=== PATIENT | male | born 1945 | race Caucasian/White ===

== ENCOUNTER 2024-08-19 09:48 | Outpatient (AMB) | payer MEDICARE, SELFPAY ==
--- NOTE | 2024-08-19 09:57 | MHC.OFFVIS ---
Vital Signs 08/19/24 10:08 Height 5 ft 3 in Weight 143 lb 15.39 oz BMI 25.5 BP 126/72 Blood Pressure Location Lt brachial Position Sitting Pulse 66 Pulse Source Pulse Oximeter Pulse Oximetry (%) 98 Oxygen Delivery Method Room Air Intake Visit Reasons: Arthritis/LM TO CB need records Intake Note: Patient presents today for arthritis in both hands. Allergies environmental allergies Allergy (Mild, Verified 08/19/24 10:14) Watery Eye, sneezing, runny nose HPI Comments Details: She is currently experiencing weakness and discomfort in her hands. History of Dupuytren's contractures-longstanding. In the past she has gone to occupational therapy and has had braces fitted. She also has exercises and paperwork from occupational therapy that she has at home. She does not do exercises regularly. She is currently going to physical therapy for neck strengthening and will also be starting physical therapy for shoulder pain and improving range of motion. She continues to do exercises regularly for lower extremity strengthening. She also walks regularly. Records have not been received from the [facility]. 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 Pancreatitis, acute Cirrhosis of liver Degenerative lumbar disc Hepatic fibrosis Acid reflux disease Varicose vein of leg Osteoporosis Persistent insomnia Family History (Updated 08/19/24 @ 10:33 by Ny Simmons CMA) Father Stroke Sister Cancer Shingles Review of Systems Const All systems reviewed & are unremarkable except as noted in HPI and below Physical Exam Vital Signs: Last Vital Signs Pulse 66 08/19/24 10:08 BP 126/72 08/19/24 10:08 Pulse Ox 98 08/19/24 10:08 Oxygen Delivery Method Room Air 08/19/24 10:08 BMI result Body Mass Index 25.5 Extrem Other: Bilateral Dupuytren's contractures present. No tenderness of joints Scoring of CMCs No Heberden's or Lo's nodes noted Weak leasing manager Assessment & Plan Assessment & Plan (1) Osteoarthritis, hand, primary localized: Comment: Clinical. She has been to occupational therapist in the past. We discussed the natural course of osteoarthritis and management. Code(s): M19.049 - Primary osteoarthritis, unspecified hand Category: Medical Plan: She will start doing exercises learned from occupational therapy in the past daily to improve range of motion and strength She will retry Voltaren gel that she has at home apply to affected area every 4-6 hours as needed Can consider trying curcumin capsule maximum dose of 1000 mg daily to help with hand pain Return to clinic in 6 months or sooner if needed (2) Dupuytren contracture of both hands: Comment: Stable Code(s): M72.0 - Palmar fascial fibromatosis [Dupuytren] Category: Medical Plan: Will monitor clinically We discussed starting exercises learned from occupational therapy in the past daily to improve range of motion and strength Plan Requesting records from [facility] Coding Level of Care Code Est Pt Level 3 (83399) Diagnoses Osteoarthritis, hand, primary localized M19.049 Dupuytren contracture of both hands M72.0
[2024-08-19 10:08] VITALS: BP 126/72; PULSE 66; O2SAT 98; BMI 25.5
== END 2024-08-19 11:05 | disposition home or self-care (01) ==
PROVIDERS: PCP Physician Assistant Medical; Visit Provider Internal Medicine Rheumatology
DX: M19.049 Primary osteoarthritis, unspecified hand (principal); M72.0 Palmar fascial fibromatosis [Dupuytren]
CPT/HCPCS: 99213

== ENCOUNTER → 2024-08-19 09:48 | Outpatient (BNVA) | payer MEDICARE, SELFPAY | PROVIDERS: PCP Physician Assistant Medical; Visit Provider Internal Medicine Rheumatology | DX: M19.049 Primary osteoarthritis, unspecified hand (principal); M72.0 Palmar fascial fibromatosis [Dupuytren] | CPT/HCPCS: 99212 ==

== ENCOUNTER 2025-02-18 10:17 | Outpatient (AMB) | payer MEDICARE, SELFPAY ==
[2025-02-18 10:20] VITALS: BP 122/76; PULSE 71; O2SAT 97; BMI 26.3
--- NOTE | 2025-02-18 10:20 | A.OFFVIS_ITS ---
Vital Signs 02/18/25 10:20 Height 5 ft 3 in Weight 148 lb 9.465 oz BMI 26.3 BP 122/76 Blood Pressure Location Lt brachial Position Sitting Pulse 71 Pulse Source Pulse Oximeter Pulse Oximetry (%) 97 Oxygen Delivery Method Room Air Intake Visit Reasons: Follow Up 6mo Intake Note: Patient presents today for arthritis in both hands. She also states feet and back pain, and lab review. Accompanied by: Life Partner Allergies environmental allergies Allergy (Mild, Verified 08/19/24 10:14) Watery Eye, sneezing, runny nose HPI HPI Follow Up 6mo: Details: She is participating in PT. OT will be scheduled at [facility] Pain is migratory. She may have pain in her hands then another time it will be in her back. She has constant foot pain. She also has paraesthesia in her foot. She was diagnosed with neuropathy in her foot. Denies diabetes. Bracing helps hand pain. She continues to have pain in her thumbs. In the past she had 1 year benefit with cortisone injection. Second cortisone injection caused steroid flare. She had swelling in hand for 3 days. She was unable to move her hand and it remained in the same clenched position. Icing and heating helped. Voltaren gel BID helps. 0. 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 Tenderness of bilateral CMCs with squaring. Normal range of motion of hands. No Heberden's or Lo's nodes noted Weak media planner / buyer Tender to palpate bilateral MTPs. She has bilateral hallux valgus deformity. No synovitis present. Office Procedures AMB Joint Injection/Aspiration Joint Injection/Aspiration Details: Bilateral CMCs Prep: site was prepped using aseptic technique Injected into each site: 10 mg of, Kenalog, with 0.25 mL of and 1% plain lidocaine Procedure: Verbal informed consent obtained. The patient tolerated the procedure well. Postprocedure protocol was discussed with patient. Coding - Small Joint Procedure code (CPT) selection complete AMB Joint Injection/Aspiration Coding - Small Joint Procedure code (CPT) selection complete Office Meds lidocaine (PF) 10 mg/mL (1 %) injection solution Performing Provider: Pratik Dove MD Performing Location: [facility] Administered by: Pratik Dove MD on 02/18/25 12:38 Dose Route Admin Location Dispensed Lot Number Expiration Date [facility] [employer] 2.5 mg Infiltration 2 mL [id number] [employer] Kenalog 40 mg/mL suspension for injection Performing Provider: Pratik Dove MD Performing Location: [facility] [place] [facility] Administered by: Pratik Dove MD on 02/18/25 12:38 Dose Route Admin Location Dispensed Lot Number Expiration Date [facility] [employer] 10 mg intra-articular 1 mL [place] [id number] [place] [employer] lidocaine (PF) 10 mg/mL (1 %) injection solution Performing Provider: Pratik Dove MD Performing Location: [facility] [place] [facility] Administered by: Pratik Dove MD on 02/18/25 12:38 Dose Route Admin Location Dispensed Lot Number Expiration Date [facility] [employer] 2.5 mg Infiltration 2 mL [id number] [employer] Kenalog 40 mg/mL suspension for injection Performing Provider: Pratik Dove MD Performing Location: [facility] [place] [facility] Administered by: Pratik Dove MD on 02/18/25 12:38 Dose Route Admin Location Dispensed Lot Number Expiration Date [facility] [employer] 10 mg intra-articular 1 mL [id number] [employer] Assessment & Plan Assessment & Plan (1) Bilateral foot pain: Comment: Chronic. She has localized tenderness to her MTPs and bunion. I will obtain x- rays for further evaluation. Pain from uncontrolled peripheral neuropathy is contributing. We discussed conservative management. Code(s): M79.671 - Pain in right foot; M79.672 - Pain in left foot Category: Medical Plan: Bilateral foot x-rays ordered for further evaluation of patient's foot pain She will benefit from PT for foot strengthening Continue to wear supportive footwear I recommend PCP follow-up for management of peripheral neuropathy. Consider gabapentin or Lyrica to help control symptoms of peripheral neuropathy She will try warm salt bath/warm foot soaks. She did not like paraffin wax bath in the past. Return to clinic in 6 months or sooner if needed (2) Osteoarthritis, hand, primary localized: Comment: Bilateral CMC pain is uncontrolled. Code(s): M19.049 - Primary osteoarthritis, unspecified hand Category: Medical Qualifiers: Laterality: unspecified laterality Qualified Code(s): M19.049 - Primary osteoarthritis, unspecified hand Plan: Continue bracing She will start occupational therapy in March Patient received bilateral CMC cortisone injections [facility] records requested Return to clinic in 6 months or sooner if needed Orders: Orders AMB Joint Injection/Aspiration Today M19.049 - Primary osteoarthritis, unspecified hand XR foot LT min 3V Today M79.671 - Pain in right foot, M79.672 - Pain in left f oot XR foot RT min 3V Today M79.671 - Pain in right foot, M79.672 - Pain in left foot AMB Joint Injection/Aspiration Today M19.049 - Primary osteoarthritis, unspecified hand Medications: New lidocaine (PF) 2.5 mg (0.25 mL) Infiltration ONCE 0.25 mL 0RF M19.049 - Primary osteoarthritis, unspecified hand Kenalog (triamcinolone acetonide) 10 mg (0.25 mL) intra-articular ONCE 0.25 mL 0RF NS M19.049 - Primary osteoarthritis, unspecified hand lidocaine (PF) 2.5 mg (0.25 mL) Infiltration ONCE 0.25 mL 0RF M19.049 - Primary osteoarthritis, unspecified hand Kenalog (triamcinolone acetonide) 10 mg (0.25 mL) intra-articular ONCE 0.25 mL 0RF NS M19.049 - Primary osteoarthritis, unspecified hand Coding Level of Care Code Est Pt Level 4 (72207) Complex EM visit Add On G2211 Diagnoses Bilateral foot pain M79.671; M79.672 Localized, primary osteoarthritis of hand, unspecified laterality M19.049 Laterality: unspecified laterality CPT Codes Coding - 29111 - Small joint: 54198 - Small Joint ([id number]) Coding - 12371 - Small joint: 78327 - Small Joint ([id number])
== END 2025-02-18 11:12 | disposition home or self-care (01) ==
LOC: HO.RHES 10:18
PROVIDERS: PCP Physician Assistant Medical; Visit Provider Internal Medicine Rheumatology
DX: M79.671 Pain in right foot (principal); M79.672 Pain in left foot; M18.0 Bilateral primary osteoarthritis of first carpometacarpal joints; M19.041 Primary osteoarthritis, right hand; M19.042 Primary osteoarthritis, left hand
CPT/HCPCS: 20600; 99214

== ENCOUNTER → 2025-02-18 10:17 | Outpatient (BNVA) | payer MEDICARE, SELFPAY | LOC: CF 02-19 12:30 | PROVIDERS: PCP Physician Assistant Medical; Visit Provider Internal Medicine Rheumatology | DX: M79.671 Pain in right foot (principal); M79.672 Pain in left foot; M19.049 Primary osteoarthritis, unspecified hand | CPT/HCPCS: 20600; 99212; J2003; J3300 ==

== ENCOUNTER 2025-02-19 12:28 | Outpatient (REF) | payer MEDICARE, SELFPAY ==
--- NOTE | ~2025-02-19 | XR_ITS ---
CLINICAL HISTORY: M79.671 - Pain in right foot 3 view bilateral foot Comparison: None Findings: Bones intact. No dislocations. No significant loss of joint space, osteophytes, or erosions. There is a right plantar calcaneal spur with plantar aponeurosis calcification. Correlate for plantar fasciitis. No ankle effusion. No radiopaque foreign body. IMPRESSION: 1. No acute findings. This document has been electronically signed by: Gaston Emery MD on 02/20/2025 15:25:51
== END 2025-02-19 12:29 | disposition home or self-care (01) ==
LOC: HO.XRAY 12:28
PROVIDERS: PCP Physician Assistant Medical; Visit Provider Internal Medicine Rheumatology
DX: M79.671 Pain in right foot (principal); M79.672 Pain in left foot
CPT/HCPCS: 73630

== ENCOUNTER → 2025-02-19 12:30 | Outpatient (BNV) | payer MEDICARE, SELFPAY | PROVIDERS: PCP Physician Assistant Medical; Visit Provider Specialist | DX: M79.671 Pain in right foot (principal) | CPT/HCPCS: 73630 ==